=== PATIENT | male | born 1960 | race Caucasian/White ===

== ENCOUNTER → 2024-02-10 07:54 | Outpatient (REF) | payer BC, SELFPAY | LOC: RCS 07:54 | PROVIDERS: ATTENDING PHYSICIAN Internal Medicine Interventional Cardiology; FAMILY PHYSICIAN Family Medicine | DX: R06.09 Other forms of dyspnea (principal) | CPT/HCPCS: 93017; 71046; 93350 ==

== ENCOUNTER 2024-03-23 06:26 | Day surgery (SDC) | payer BC, SELFPAY ==
[2024-03-23 14:47] LABS: Glucose - Point of Care 95 mg/dl (70-99)
== END 2024-03-23 15:41 | disposition home or self-care (01) ==
LOC: GI 06:26
PROVIDERS: ATTENDING PHYSICIAN Internal Medicine Gastroenterology
DX: Z12.11 Encounter for screening for malignant neoplasm of colon (principal); D12.4 Benign neoplasm of descending colon; D12.5 Benign neoplasm of sigmoid colon; K64.8 Other hemorrhoids; Z86.0100 Personal history of colon polyps, unspecified
CPT/HCPCS: 45385; 88305; 82962

== ENCOUNTER → 2024-04-06 14:42 | Outpatient (REF) | payer BC, SELFPAY | LOC: HWRAD 14:42 | PROVIDERS: ATTENDING PHYSICIAN Nurse Practitioner Family; FAMILY PHYSICIAN Family Medicine; REFERRING PHYSICIAN Student in an Organized Health Care Education/Training Program | DX: M54.32 Sciatica, left side (principal) | CPT/HCPCS: 76770 ==

== ENCOUNTER → 2024-10-15 14:05 | Outpatient (REF) | payer BC, SELFPAY | LOC: RAD 14:05 | PROVIDERS: ATTENDING PHYSICIAN Physician Assistant Medical; FAMILY PHYSICIAN Family Medicine | DX: C49.9 Malignant neoplasm of connective and soft tissue, unspecified (principal); H93.91 Unspecified disorder of right ear | CPT/HCPCS: 70491; 71260; Q9967 ==

== ENCOUNTER 2024-10-17 12:09 | Emergency (ER) | payer BC, SELFPAY ==
[2024-10-17 12:09] VITALS: BMI 36.0
[2024-10-17 12:10] VITALS: BP 146/72
[2024-10-17] MEDS: NSS 500 IV (12:39)
[2024-10-17 13:01] LABS: Hematocrit 37.5 % (39.0-52.0); Hemoglobin 13.4 g/dL (13.0-18.0); Mean Corp Hgb Conc. 35.7 g/dL (33.0-37.0); Mean Corpuscular Volume 92.4 fL (80.0-94.0); Nucleated Red Blood Cells % 0 % (-); Platelet Count 257 10^3/uL (130-400); Red Cell Dist. Width 12.0 % (11.5-14.5)
[2024-10-17 13:04] LABS: Urine Character Clear (Clear)
[2024-10-17 13:14] LABS: ALT (SGPT) 39 U/L (0-50); AST (SGOT) 34 U/L (17-59); Albumin 4.5 g/dl (3.5-5.0); Alkaline Phosphatase 52 U/L (38-126); Blood Urea Nitrogen 21 mg/dl (9-20); Calcium 9.5 mg/dl (8.4-10.2); Carbon Dioxide 27 mmol/L (22-30); Chloride 101 mmol/L (98-107); Estimated Creatinine Clearance 95 ml/min; Glucose 104 mg/dl (70-99); Lipase 655 U/L (23-300); Potassium 4.2 mmol/L (3.5-5.1); Sodium 136 mmol/L (135-145); Total Protein 6.8 g/dl (6.3-8.2); eGFR > 60.00
[2024-10-17 13:39] LABS: Urine Squamous Cell 0-2 /LPF (Few)
[2024-10-17 13:40] LABS: Urine Red Blood Cell 0-2 /HPF (0-2); Urine White Cell 0-2 /HPF (0-5)
--- NOTE | 2024-10-17 13:43 | ED.GENMED ---
History of Present Illness
General
Chief Complaint: Abdominal Pain
Source: patient
Exam Limitations: none
Time Seen by Provider: 10/17/24 12:31
History of Present Illness
History of Present Illness:
Patient with days of left-sided abdominal pain. Mostly points to the left mid quadrant. No radiation to the back no nausea or vomiting no fever no urinary symptoms. No change in bowels. Patient increased his Mounjaro dose the day the pain
increased.
Past History
Past History
ED Past Medical History: Arrthythmia (Atrial fibrillation), HTN, Hypercholesterolemia and NIDDM (Diet-controlled)
ED Past Surgical History: Tonsilectomy
Social History
Tobacco: Former smoker
Alcohol: Occasional
Drug: None
Review of Systems
Review of Systems
All Other Systems: Not applicable
Constitutional: Denies fever or chills
Respiratory: Reports no symptoms
Cardiac: Reports no symptoms
Phy Exam
Physical Exam
Physical Exam:
GENERAL: Alert and oriented in no apparent distress
EYE: Orbits normal.
NECK: Supple, no significant adenopathy.
ENT: Pharynx without erythema
CARDIAC: Regular rate and rhythm without any obvious murmurs.
LUNGS: Clear breath sounds,normal
ABDOMEN: Soft, bowel sounds present. Mild left mid quadrant tenderness. No rebound or guarding no mass or hernia. No CVA tenderness.
NEUROLOGICAL: Alert and oriented , grossly non-focal
SKIN: Warm and dry, no rash or lesion, no discoloration, skin intact.
MUSCULOSKELETAL: No edema,no deformity.Good color
PSYCH: Normal and appropriate interaction.
Course
Orders/Labs/Results
Orders:
Orders
10/17/24 12:31
CT Abd/Pel (IV only)-[facility] only Urgent
Comment:
Reason For Exam: Left lower quadrant pain
IV Insert/Care/Rem.- Treatment PRN
0.9% Sodium Chloride 500 ml [Nss] 500 ml IV BOLUS
10/17/24 12:42
Complete Blood Count/With Diff Urgent
Comprehensive Metabolic Panel Urgent
Lipase Urgent
Urinalysis Reflex To Culture Urgent
Date Specimen was Collected: 10/17/24
Time Specimen was Collected: 12:34
Urine Microscopic Reflex Cult Urgent
10/17/24 14:48
Ampicillin/Sulbactam 3 grams IVPB NOW Ampicillin/Sulbactam 3 G [Unasyn] 3 gm 0.9% Sodium Chloride 100 ml [Nss] 100 ml IV NOW
Abnormal Lab Results
10/17/24
12:42
RBC 4.06 L 10^6/uL
(4.70-6.10)
Hct 37.5 L %
(39.0-52.0)
MCH 33.0 H pg
(27.0-31.0)
Abs Immat Gran (auto) 0.1 H 10^3/uL
(0-0.05)
Absolute Monos (auto) 0.8 H 10^3/uL
(0.1-0.6)
BUN 21 H mg/dl
(9-20)
Glucose 104 H mg/dl
(70-99)
Lipase 655 H U/L
(23-300)
Urine Glucose 4+ A
(Negative)
Urine Albumin (Reflex) 2+ A
(Neg - Trace)
10/17/24 12:42
10/17/24 12:42
Vital Signs
Initial and Last Documented VS:
Initial Vital Signs
Temp Pulse Resp BP Pulse Ox
97.4 F 70 18 146/72 99
10/17/24 12:10 10/17/24 12:10 10/17/24 12:10 10/17/24 12:10 10/17/24 12:10
Last Documented Vital Signs
Temp Pulse Resp BP Pulse Ox
97.4 F 70 16 146/72 99
10/17/24 12:10 10/17/24 12:10 10/17/24 14:00 10/17/24 12:10 10/17/24 13:46
MDM/Problems Addressed
Differential Diagnosis Includes:
Differential would include diverticulitis, pancreatitis secondary to Mounjaro, nonspecific pain. Kidney stone. Workup in progress
*Radiology
Radiology exam reviewed: radiology read reviewed (Uncomplicated diverticulitis)
*Pulse Oximetry
SaO2: 99
Oxygen Mode of Delivery: Room air
Patient hypoxic: no
*Critical Care Note
Total Time (30-74mins, 75-104mins- exclusive of procedures): Not Applicable
Update Note
Update Note:
Uncomplicated diverticulitis. Will treat with outpatient Augmentin. Will give a dose of Unasyn prior to discharge. As for the Mounjaro and lipase elevation. The lipase elevation may all be secondary to the diverticulitis however there could be a
component of very mild pancreatitis from the Mounjaro. He will hold on Mounjaro and follow-up.
ED Attending Note
-
Portions of this chart may have been created with voice recognition software.� Occasional wrong word or��sound alike� substitutions may have occurred due to the inherent limitations of voice recognition software.
Discharge Plan
Departure
Patient Disposition: Home (Routine Discharge)
Date of Disposition: 10/17/24
Time of Disposition: 14:49
Patient with high blood pressure during this ER visit?: Yes
Discharge Problem:
Diverticulitis, Possible very mild pancreatitis
Instructions: Diverticulitis (DC), Abdominal Pain
Prescriptions:
New
amoxicillin-pot clavulanate 875-125 mg tablet
1 tab PO BID Qty: 20 0RF
No Action
pravastatin 40 MG tablet
40 mg PO DAILY
irbesartan-hydrochlorothiazide [Avalide] 1 EACH tablet
1 ea PO DAILY
atenolol 50 MG tablet
50 mg PO DAILY
indomethacin 25 MG capsule
25 mg PO TID PRN (Reason: pain) Qty: 12 0RF
prednisone 20 MG tablet
60 mg PO DAILY Qty: 21 0RF
Referrals:
Sarah Trejo MD [Family Provider, Family Practice] - Follow up in 2-3 days
Activity Restrictions/Additional Instructions:
Stop the Mounjaro for now
Antibiotics as directed. It was called into your pharmacy.
Light diet
Close follow-up with your primary physician
To consider rechecking your lipase in 3 to 4 days to make sure it is coming down
Interventions
Interventions:
*Risk Screen - Suicide Last Done: 10/17/24 12:10
*General Assessment Last Done: 10/17/24 12:10
*Neglect/Abuse Screening Last Done: 10/17/24 12:10
*ED- Fall Risk Assessment Last Done: 10/17/24 12:32
*ED COVID-19 Vaccine History Last Done: 10/17/24 12:10
YX-Efuicu-Zxufvhtneu Assessment Last Done: 10/17/24 12:32
Discharge Date and Time
Print Language: CZECH
[2024-10-17] MEDS: UNASYN IV (14:50)
== END 2024-10-17 15:30 | disposition home or self-care (01) ==
LOC: EMR 12:09
PROVIDERS: EMERGENCY PHYSICIAN Emergency Medicine; FAMILY PHYSICIAN Family Medicine
DX: K57.32 Diverticulitis of large intestine without perforation or abscess without bleeding (principal); E78.00 Pure hypercholesterolemia, unspecified; I10 Essential (primary) hypertension; I48.91 Unspecified atrial fibrillation
CPT/HCPCS: 96365; 96361; 99284; 74177; 80053; 81003; 81015; 83690; 85025; Q9967